=== PATIENT | female | born 1965 | race Caucasian/White ===

== ENCOUNTER → 2021-03-09 | Outpatient (CLI) | payer BC | LOC: SJCVCIMAG 07:43 | PROVIDERS: ATTEND Internal Medicine | DX: I25.9 Chronic ischemic heart disease, unspecified (principal); R94.31 Abnormal electrocardiogram [ECG] [EKG]; R55 Syncope and collapse; K21.9 Gastro-esophageal reflux disease without esophagitis; F32.9 Major depressive disorder, single episode, unspecified; Z87.891 Personal history of nicotine dependence ==

== ENCOUNTER → 2021-03-20 | Outpatient (CLI) | payer BC ==
[~2021-03-20] VITALS: Ht 170.2 cm; Wt 88.6 kg
[~2021-03-20] MED LIST: CELEBREX 200 M200 M1 PO; FLONASE 0.05%50 MCG NASAL; MESALAMINE1000 MG RECTAL; PROTONIX40 M2 PO; PROZAC40 MG PO; VITAMIN D21250 MCG PO; XELJANZ5 MG PO; ZYRTEC10 M5 PO
--- NOTE | 2021-03-20 10:32 | EKG ---
[place] [address] [facility] [place] [address] ELECTROCARDIOGRAM REPORT Name: DONTAE HAGAN Room #: REG MOUSTAPHA Kevin#: [id number] Admission: 03/20/21 Attend Phys: Adrian Chavarria Discharge: Date of : 63 Report #: [id number] [facility] Test Date: 2021-03-20 Test Time: 10:24:04 Pat Name: DONTAE HAGAN Department: Room: Gender: F Freight Conductor: MADELYN : 1965 Requested By: Adrian Chavarria Order Number: [id number] MD: Lukasz Peters Measurements Intervals [place] Rate: 51 P: -4 VA: 155 QRS: -5 QRSD: 112 T: 0 QT: 459 QTc: 423 Interpretive Statements Sinus rhythm Incomplete right bundle branch block No previous ECG available for comparison Electronically Signed On 03-20-2021 10:31:55 CDT by Lukasz Peters [email or web address] <ELECTRONICALLY SIGNED> By: Lukasz Peters MD, [facility] 03/20/21 1031 1024 [facility] Lukasz Peters MD, FACRocio /EPI
[2021-03-20 10:37] VITALS: BP 1223/72
[2021-03-20 10:43] LABS: HEMATOCRIT 42.1 % (37.0-47.0); HEMOGLOBIN 13.8 gm/dL (12.0-15.0); MCH 29.8 pg (26.0-34.0); MCHC 32.8 g/dL (28.0-37.0); MCV 90.9 fL (80.0-100.0); RBC 4.63 mil/uL (4.20-5.00); RDW 13.8 % (10.5-14.5); WBC 7.8 thou/uL (4.0-11.0)
[2021-03-20 10:56] LABS: CALCIUM 8.9 mg/dL (8.5-10.1); CREATININE 0.9 mg/dL (0.6-1.0); POTASSIUM 3.9 mmol/L (3.5-5.1)
--- NOTE | 2021-04-06 11:52 | CATHLAB ---
[facility] [place] [address] INVASIVE PROCEDURE REPORT Name: DONTAE HAGAN Room #: REG MOUSTAPHA Dorita#: [id number] Admission: 03/20/21 Attend Phys: Adrian Chavarria Discharge: Date of : 63 Report #: [id number] THIS REPORT FOR: cc: ALLYSON KING NO FAMILY PHYSICIAN or PCP Adrian Chavarria MD ~ APPROVED REPORT Study performed: 03/20/2021 10:37:01 Patient Details Patient Status: Out-Patient Room #: The patient is a 56 year-old female Event Personnel Adrian Chavarria Air Brake Rigger, Gabby Potter RTR, HVAC JOURNEYMAN Monitor, Susan White RN RN, Justina Tomas RT(R)() Scrub Procedures Performed Art Access - R femoral artery* Left Heart Cath w/or w/o Coronaries [id number] [facility] [id number] Initial Mod Sed Same Phys/QHP Gr 329226 Hemostasis with Manual pressure 13532 Mod Sed Same Phys/QHP Ea [id number], supervision of conscious sedation Indication Positive stress test Procedure Narrative The Right Groin^ was infiltrated with 1% Lidocaine subcutaneous anesthesia. A PINNACLE 4FR Sheath #[id number] sheath was inserted into the RFA^. Coronary angiography was performed using coronary diagnostic catheters. The right coronary system was accessed and visualized with a JR4 catheter. The left coronary system was accessed and visualized with a JL4 catheter. The left ventricle was accessed and visualized with a ANGLED PIGTAIL catheter. Left ventricular/Aortic Valve gradient assessed via catheter pullback. Hemostasis was obtained with manual pressure following sheath removal without any complications. The patient tolerated the procedure well and there were no complications associated with the procedure. There was no hematoma. Intraoperative Conscious Sedation Sedation start time: 11:08 Case end Time: [facility] [address] [place] [address] INVASIVE PROCEDURE REPORT Name: HAGANDONTAE Room #: REG [facility]#: [id number] Admission: 03/20/21 Attend Phys: Adrian Finch Discharge: Date of : 63 Report #: [id number] 11:35 Versed 3 mg Fluoro Time: 2.03 minutes Dose: DAP 2261.60 cGycm2 338 mGy Contrast Type and Amount: Omnipaque 45 ml Coronary Angiography The patient's coronary anatomy is co- dominant. Diagnostic Cath Left Main Moderate to large caliber vessel of normal origin. Bifurcates left into descending left circumflex free of high-grade disease LAD Moderate caliber type III vessel coursing the anterior interventricular sulcus. Early on the first diagonal branch comes out which is moderate in size. The vessel and continues on in the AV groove gives rise to several diagonal branches as it looks the apex and terminates in posterior axillary of the left ventricle. It is quite tortuous in its course but no high-grade lesions are identified Diagonal 1 Moderate caliber vessel of comparable size to the LAD itself. Coursing on the anterolateral wall towards the apex without high-grade lesions noted Diagonal 2 Small insignificant caliber vessel Circumflex Monitor large-caliber codominant vessel which gives rise to small and significant early branch. This branch has a eccentric lesion approximately 50% but the vessel is less than 5 mm in diameter. It then gives rise to a second marginal branches coursing on the lateral aspect of the heart. The circumflex proper then continues on in the AV groove posteriorly giving rise to 2 small posterior wall branches and a moderate caliber vessel which appears to function as a PDA. No high-grade lesions are noted OM1 Diminutive insignificant caliber vessel OM2 Moderate caliber vessel coursing on the aspect of the heart without significant high-grade lesion but quite tortuous in its course OM3 And OM for a small diminutive vessel without significant disease L PDA Moderate caliber vessel coursing in the posterior aspect of the left ventricle along the posterior interventricular sulcus without significant lesions identified Right Coronary Small caliber vessel of normal origin coursing the AV groove giving rise to atrial and ventricular branches. The right ventricular branch is small in size but quite long in length. [facility] [address] [place] [address] INVASIVE PROCEDURE REPORT Name: DONTAE HAGAN Marcela Room #: REG CL Dorita#: [id number] Admission: 03/20/21 Attend Phys: Adrian Finch Discharge: Date of : 63 Report #: [id number] RCA proper continues to the crux of the heart gives rise to a small caliber vessel which is a posterior descending artery and terminates a small bifurcating vessel correction down the ventricle. R PDA Small caliber vessel significant high-grade lesions Left Ventriculography Left Ventriculography was not performed. Hemodynamics The aortic pressure is 145/71 mmHg with a mean of 100 mmHg. The left ventricular pressure is 146/7 mmHg with a mean of mmHg. The left ventricular end diastolic pressure is 31 mmHg. Conclusion 1. Essentially normal coronary arteries 2. Normal hemodynamic Recommendations Cardiac Risk Reduction Program Medical Therapy <ELECTRONICALLY SIGNED> By: Adrian Chavarria MD 04/06/21 1152 51 115 Adrian Chavarria MD /INF
== END | disposition home or self-care (01) ==
LOC: CATH 06:55
PROVIDERS: ATTEND Internal Medicine
DX: R94.39 Abnormal result of other cardiovascular function study (principal); K21.9 Gastro-esophageal reflux disease without esophagitis; F32.9 Major depressive disorder, single episode, unspecified; Z98.890 Other specified postprocedural states; Z79.899 Other long term (current) drug therapy; Z87.891 Personal history of nicotine dependence; Z87.442 Personal history of urinary calculi